=== PATIENT | female | born 1940 | race Caucasian/White ===

== ENCOUNTER 2020-02-01 18:38 | Observation (INO) | payer MEDICARE, SELFPAY ==
[2020-02-01] VITALS (13 sets, daily range): BP systolic 148–175; BP diastolic 80–106; PULSE 70–101; RESP 16–33; TEMP 36.8; O2SAT 87–96
--- NOTE | ~2020-02-01 | XR_ITS ---
XR chest 2V 02/01/2020 19:38 Indication: Midsternal chest pain. Atrial fibrillation. Procedure: AP and lateral views of the chest Comparison: No prior studies for comparison. Findings: Cardiomegaly. There is interstitial edema. Small pleural effusions. No pneumothorax. There is accentuated thoracic kyphosis. No acute osseous abnormality. Impression: 1: Cardiomegaly with interstitial edema. Reviewed, dictated and finalized at location A. OR [employer] DEVEL[employer] Impression: 1: Cardiomegaly with interstitial edema.
--- NOTE | 2020-02-01 19:08 | ECG_ITS ---
Measurements Intervals [place] Rate: 93 P: OR: 0 QRS: -12 QRSD: 85 T: 157 QT: 337 QTc: 420 Interpretive Statements ATRIAL FIBRILLATION DELAYED PRECORDIAL R/S TRANSITION ST-T WAVE ABNORMALITY IN HIGH LATERAL LEADS- CONSIDER ISCHEMIA BASELINE ARTIFACT- I, III, AVR, AVL, AVF, V1-V6 ABNORMAL ECG Electronically Signed On 02-02-2020 7:55:57 LABORATORY ASST by John Saez D.O.
[2020-02-01 19:25] LABS: Basophils Percent Auto 0.4 % (0.2-1.2); Eosinophils Absolute Auto 0.3 K/mm3 (0-0.3); Eosinophils Percent Auto 2.6 % (0-4.4); Hematocrit 40.4 % (37.0-47.0); Hemoglobin 12.4 g/dL (12.0-15.0); Immature Granulocyte Absolute 0.04 K/mm3 (0.00-0.031); Immature Granulocyte Percent A 0.4 % (0-0.5); Lymphocytes Absolute Auto 1.39 K/mm3 (0.9-3.2); Lymphocytes Percent Auto 14.5 % (18.3-44.2); Mean Corpuscular HGB Conc 30.7 g/dl (32-36); Mean Corpuscular Hemoglobin 25.7 pg (26-34); Mean Corpuscular Volume 83.8 fl (80-100); Monocytes Absolute Auto 0.7 K/mm3 (0.1-0.6); Monocytes Percent Auto 7.4 % (2.6-8.5); Neutrophils Absolute Auto 7.2 K/mm3 (1.3-6.7); Neutrophils Percent Auto 74.7 % (45.5-73.1); Platelet Count Result 254 k/mm3 (150-375); Red Blood Count 4.82 M/mm3 (4.2-5.4); Red Cell Distribution Width 17.2 % (11.5-14.5); White Blood Count 9.6 K/mm3 (4.5-10.0)
[2020-02-01 19:38] LABS: Anion Gap 10 mmol/L (8-16); Blood Urea Nitrogen 20 mg/dL (7-17); Carbon Dioxide 26 mmol/L (22-30); Chloride 104 mmol/L (98-107); Estimated CRCL calculation 33 ml/min; Estimated Glomerular Filt Rate 48; Glucose 162 mg/dL (65-105); Sodium 140 mmol/L (137-145)
[2020-02-01 19:42] LABS: Potassium 4.4 mmol/L (3.4-5.0)
[2020-02-01 19:50] LABS: INR 2.1; Partial Thromboplastin Time 33.5 SECONDS (22.3-36.8); Prothrombin Time 23.8 Seconds (11.1-14.7)
--- NOTE | 2020-02-01 19:52 | ED.SOB ---
HPI - SOB/Dyspnea General Chief Complaint: Shortness of Breath/Dyspnea Stated Complaint: shortness of breath Time Seen by Provider: 02/01/20 19:05 History of Present Illness HPI Narrative: Patient is a 79-year-old female who presents to the ER with shortness of breath. Worsening over the last 4 days. Reports she is chronically short of breath but this is markedly worse. She cannot do any activities in her home without becoming short of breath. Does not endorse without angina. She does report she has discomfort in her chest that radiates between her shoulder blades and goes to the mid aspect of her left arm. This is a new sensation for her. She sees a shade maker at [place]. She had an echocardiogram 4 months ago and is worried that she has a bad valve is unsure which one severe it is. She takes Lasix 20 mg as well as Coumadin. Related Data Home Medications Medication Instructions Recorded Confirmed albuterol sulfate INHALATION 02/01/20 atenolol 02/01/20 digoxin 02/01/20 furosemide 02/01/20 umeclidinium-vilanterol [Anoro INHALATION 02/01/20 Ellipta] warfarin 02/01/20 Allergies Allergy/AdvReac Type Severity Reaction Status Date / Time No Known Allergies Allergy Verified 02/01/20 19:07 Review of Systems Review of Systems: All systems reviewed & are unremarkable except as noted in HPI and below Constitutional: Constitutional: Denies chills, Reports fatigue and Denies fever(s) Cardiovascular: Cardiovascular: Reports chest pain, Denies rapid heart rate and Reports radiating jaw, neck or arm pain Respiratory: Respiratory: Denies cough, Reports dyspnea and Denies wheezing Gastrointestinal: Gastrointestinal: Denies abdominal pain, Denies nausea and Denies vomiting [facility] Past Medical History Medical History (Updated 02/01/20 @ 21:06 by Gerard Pierce MD) Atrial fibrillation CHF (congestive heart failure) Colon cancer COPD (chronic obstructive pulmonary disease) Kidney stone Small bowel obstruction Surgical History Surgical History (Updated 02/01/20 @ 20:02 by Gerard Pierce MD) H/O hernia repair History of cholecystectomy History of partial hysterectomy Social History Social History (Updated 02/01/20 @ 20:03 by Gerard Pierce MD) Social History: non-smoker Gender identity (if verbalized by the patient): Female Exam Narrative: Exam Narrative: GENERAL: Well-appearing, well-nourished, and in no acute distress. HEAD: Normocephalic, atraumatic. CHEST: Clear to auscultation with crackles at the bases. No respiratory distress. HEART: Irregular regular rate and rhythm. Systolic murmur heard left upper sternal border. Normal peripheral pulses. ABDOMEN: Soft, nontender, nondistended, normal active bowel sounds. EXTREMITIES: Normal range of motion. 1+ edema. SKIN: Warm, dry, no rash. NEURO: Alert and oriented x3. PSYCH: Normal mood and affect. Course Course Emergency Course: Admit to hospital service for diuresis. Outside records requested. Vital Signs Vital signs: Vital Signs Temperature 98.3 F 02/01/20 18:54 Pulse Rate 88 02/01/20 18:54 Respiratory Rate 16 02/01/20 18:54 Blood Pressure 175/84 H 02/01/20 18:54 Temperature 98.3 F 02/01/20 18:54 Pulse Rate 94 02/01/20 19:05 Respiratory Rate 16 02/01/20 18:54 Blood Pressure 175/84 H 02/01/20 18:54 Pulse Oximetry 93 02/01/20 19:01 MDM - SOB/Dyspnea Lab Data Result diagrams: 02/01/20 19:18 02/01/20 19:18 Labs: Lab Results 02/01/20 02/01/20 02/01/20 Range/Units 19:18 19:18 19:18 WBC 9.6 (4.5-10.0) K/mm3 RBC 4.82 (4.2-5.4) M/mm3 Hgb 12.4 (12.0-15.0) g/dL Hct 40.4 (37.0-47.0) % MCV 83.8 (80-100) fl MCH 25.7 L (26-34) pg MCHC 30.7 L (32-36) g/dl RDW 17.2 H (11.5-14.5) % Plt Count 254 (150-375) k/mm3 MPV 12.0 H (7.4-10.4) fl Immature Gran % (Auto) 0.4 (0-0.5) % Neut % (Auto) 74.7 H (4
[2020-02-01 20:03] LABS: NT Pro B Type Natriuretic Pept 6690 PG/ML (5-100); Troponin I 0.018 ng/mL (0.000-0.034)
--- NOTE | 2020-02-01 20:17 | PC.NURSE ---
Patient ambulated with pulse ox-initially dropped to 89 then came up to 93%. Dr Pierce made aware. Patient reports that it made her chest feel tight like before
[2020-02-01] MEDS: FUROSEMIDE INJ 40 MG/4 ML VIAL IV PUSH (20:19)
--- NOTE | 2020-02-01 21:24 | PM.IMHP ---
H&P: HPI History of Present Illness Date/Time: 02/01/20 21:24 Chief Complaint: shortness of breath for 4 days Narrative: This is a pleasant 79-year-old female with known history of chronic atrial fibrillation on warfarin therapy, congestive heart failure, and COPD who presented to the hospital with worsening shortness of breath over the past 4 days. The patient has had gradual worsening exertional shortness of breath over the past few months but has noticed over the last few days that it has gotten increasingly worse. Associated symptoms include midsternal chest discomfort that seems to radiate towards her back and down her left arm. She denies any fever, chills, cough, wheezing, abdominal pain, nausea, vomiting, dysuria, hematuria, diarrhea, or rectal bleeding. The patient is known to see cardiology at [facility] and her last echocardiogram was about 4 months ago. Tonight the emergency room routine labs were obtained which demonstrate an elevated BNP of 6690. Chest x-ray showed cardiomegaly with interstitial edema. The patient was treated with IV Lasix and we been asked to admit her to the hospital for further care. Review of Systems Review of Systems: All systems reviewed & are unremarkable except as noted in HPI and below PMFSH Past Medical History Medical History Atrial fibrillation CHF (congestive heart failure) Colon cancer COPD (chronic obstructive pulmonary disease) Kidney stone Small bowel obstruction Surgical History Surgical History H/O hernia repair History of cholecystectomy History of partial hysterectomy Family History Family History (Updated 02/01/20 @ 21:39 by Bradford Carlson MD) Mother Cancer of female genital organ Social History Social History Social History: non-smoker Gender identity (if verbalized by the patient): Female Meds Home Medications and Allergies Home Medications Medication Instructions Recorded Confirmed Type albuterol sulfate INHALATION 02/01/20 History atenolol 02/01/20 History digoxin 02/01/20 History furosemide 02/01/20 History umeclidinium-vilanterol [Anoro INHALATION 02/01/20 History Ellipta] warfarin 02/01/20 History Allergies Allergy/AdvReac Type Severity Reaction Status Date / Time No Known Allergies Allergy Verified 02/01/20 19:07 Vital Signs Vital Signs - 24 hr 02/01/20 18:54 02/01/20 19:01 02/01/20 19:05 Temperature 36.8 C Pulse Rate 88 94 Respiratory Rate 16 Blood Pressure 175/84 H Pulse Oximetry 93 Exam Const: General: cooperative, alert, awake, acute distress respiratory, tired appearing, uncomfortable and other (anxious) Nutritional Appearance: overweight Orientation/consciousness: patient oriented x3 HENMT: Head: normal to inspection General nose exam: Normal external nose present Face and sinus: normal facial exam Mouth: Yes Normal oral and palatal mucosa present and Yes oropharynx normal Eyes: Pupils: Equal, round and reactive pupils present EOM: EOMs intact bilaterally Neck: Neck: supple and no JVD Thyroid: thyroid normal Lymphatic: lymphadenopathy not noted Resp: Effort & Inspection: tachypneic Auscultation: crackles (bibasilar++ ) bilateral and diminished lung sounds Cardio: Rate: tachycardic Rhythm: abnormal rhythm irregularly irregular Heart sounds: Murmur heart sound present (harsh holosystolic murmur >>aortic focus radiating to carotids++ ) systolic GI: Inspection: normal to inspection Auscultation: normal bowel sounds Skin: General skin exam: normal color and no rashes or lesions noted Neuro: General: patient oriented x3 Cranial nerves: Yes CN's II-XII intact bilaterally and Yes Equal, round and reactive pupils present Speech: normal speech Motor exam (neuro): 5/5 motor strength present throughout Sensory Exa
[2020-02-01] MEDS: PROMETHAZINE HCL 25 MG/ML AMPUL 12.5 MG IV PUSH (22:49)
[2020-02-01] MEDS: MORPHINE SULFATE (*CRX) 4 MG/ML INJ IV PUSH (22:49)
[2020-02-01 23:08] LABS: Troponin I 0.018 ng/mL (0.000-0.034)
[2020-02-02] VITALS (22 sets, daily range): BP systolic 104–174; BP diastolic 60–93; PULSE 60–104; RESP 16–25; TEMP 35.7–36.6; O2SAT 97–100; BMI 28.3
--- NOTE | 2020-02-02 00:58 | PC.NURSE ---
This patient, Maddison Brown, was admitted to IMU Room 232-01. Patient/family oriented to hospital policies and general routines including ID bracelet, bed and alarms, visiting hours, pain management, procedures, bathroom and other care routines, personal items, smoking policy, room service/diet, and visiting hours. Information on how to activate the Rapid Response Team has been discussed. Patient/Family are encouraged to report perceived risks to care and to ask questions if they do not understand what they are told or what they should do.
[2020-02-02 05:34] LABS: Basophils Percent Auto 0.4 % (0.2-1.2); Eosinophils Absolute Auto 0.3 K/mm3 (0-0.3); Eosinophils Percent Auto 4.3 % (0-4.4); Hematocrit 36.4 % (37.0-47.0); Hemoglobin 11.1 g/dL (12.0-15.0); Immature Granulocyte Absolute 0.03 K/mm3 (0.00-0.031); Immature Granulocyte Percent A 0.4 % (0-0.5); Lymphocytes Percent Auto 17.6 % (18.3-44.2); Mean Corpuscular HGB Conc 30.5 g/dl (32-36); Mean Corpuscular Hemoglobin 24.9 pg (26-34); Mean Corpuscular Volume 81.6 fl (80-100); Mean Platelet Volume 12.1 fl (7.4-10.4); Monocytes Absolute Auto 0.6 K/mm3 (0.1-0.6); Monocytes Percent Auto 7.2 % (2.6-8.5); Neutrophils Absolute Auto 5.6 K/mm3 (1.3-6.7); Neutrophils Percent Auto 70.1 % (45.5-73.1); Platelet Count Result 231 k/mm3 (150-375); Red Blood Count 4.46 M/mm3 (4.2-5.4); Red Cell Distribution Width 16.7 % (11.5-14.5)
[2020-02-02 06:01] LABS: Anion Gap 6 mmol/L (8-16); Blood Urea Nitrogen 23 mg/dL (7-17); Calcium 8.4 mg/dL (8.4-10.2); Carbon Dioxide 30 mmol/L (22-30); Chloride 104 mmol/L (98-107); Estimated CRCL calculation 36 ml/min; Estimated Glomerular Filt Rate 54; Glucose 98 mg/dL (65-105); Sodium 140 mmol/L (137-145)
[2020-02-02] MEDS: FUROSEMIDE INJ 40 MG/4 ML VIAL IV PUSH ×2 (08:31→20:07)
[2020-02-02 08:43] LABS: Hemoglobin A1C 5.8 % (<5.7)
--- NOTE | 2020-02-02 11:38 | PM.IMPN ---
Progress Note: A&P Assessment and Plan (1) Congestive heart failure: Qualifiers: Heart failure chronicity: acute on chronic Heart failure type: unspecified Qualified Code(s): I50.9 - Heart failure, unspecified Code(s): I50.9 - Heart failure, unspecified Status: Acute Assessment and Plan: The patient has been placed in observation status. Continue IV lasix. telemetry. Is and Os, daily weights, sodium prudent, fluid restricted diet. TSH w/reflex T4, Echocardiogram. (2) Chest pain: Qualifiers: Chest pain type: unspecified Qualified Code(s): R07.9 - Chest pain, unspecified Code(s): R07.9 - Chest pain, unspecified Status: Acute Assessment and Plan: r/o ACS. Trend troponin, telemetry. Nitroglycerin SL prn for chest pain. Cardiology consultation in am. (3) Heart murmur, systolic: Code(s): R01.1 - Cardiac murmur, unspecified Status: Acute Assessment and Plan: Likely aortic stenosis. Check echocardiogram in am. (4) Abnormal glucose: Code(s): R73.09 - Other abnormal glucose Status: Acute Assessment and Plan: r/o diabetes mellitus. Check HgbA1c in am. (5) Atrial fibrillation: Qualifiers: Atrial fibrillation type: unspecified Qualified Code(s): I48.91 - Unspecified atrial fibrillation Code(s): I48.91 - Unspecified atrial fibrillation Status: Chronic Assessment and Plan: Currently rate controlled. Continue atenolol, digoxin, and warfarin. Monitor PT/INR. (6) COPD (chronic obstructive pulmonary disease): Qualifiers: COPD type: unspecified COPD Qualified Code(s): J44.9 - Chronic obstructive pulmonary disease, unspecified Code(s): J44.9 - Chronic obstructive pulmonary disease, unspecified Status: Chronic Assessment and Plan: Xopenex prn. Additional Plan Will diurese patient with IV Lasix. If condition improve with treatment, possible discharge tomorrow month Subjective Date/time seen: 02/02/20 11:38 Interval history: Patient was seen during the morning rounds today. Patient has mild shortness of breath. No chest pain. No nausea vomiting or abdominal pain. No fever. Mood stable. Review of Systems Review of Systems: All systems reviewed & are unremarkable except as noted in HPI and below Exam Const: General: cooperative, alert, awake, acute distress respiratory, tired appearing, uncomfortable and other (anxious) Nutritional Appearance: overweight Orientation/consciousness: patient oriented x3 HENMT: Head: normal to inspection General nose exam: Normal external nose present Face and sinus: normal facial exam Mouth: Yes Normal oral and palatal mucosa present and Yes oropharynx normal Eyes: Pupils: Equal, round and reactive pupils present EOM: EOMs intact bilaterally Neck: Neck: supple and no JVD Thyroid: thyroid normal Lymphatic: lymphadenopathy not noted Resp: Effort & Inspection: tachypneic Auscultation: crackles (bibasilar++ ) bilateral and diminished lung sounds Cardio: Rate: tachycardic Rhythm: abnormal rhythm irregularly irregular Heart sounds: Murmur heart sound present (harsh holosystolic murmur >>aortic focus radiating to carotids++ ) systolic GI: Inspection: normal to inspection Auscultation: normal bowel sounds Skin: General skin exam: normal color and no rashes or lesions noted Neuro: General: patient oriented x3 Cranial nerves: Yes CN's II-XII intact bilaterally and Yes Equal, round and reactive pupils present Speech: normal speech Motor exam (neuro): 5/5 motor strength present throughout Sensory Exam: normal sensation Extrem: General: normal to inspection and edema Psych: Mental Status: mental status grossly normal Affect: normal affect Objective Data Vital Signs Vital Signs: Vital Signs - 24 hr 02/01/20 18:54 02/01/20 19:01 02/01/20 19:05 Temperature 36.8 C Pulse Rate 88 94 Respiratory Rate 16 Blood Press
[2020-02-02 12:16] LABS: INR 1.9; Prothrombin Time 22.2 Seconds (11.1-14.7)
[2020-02-02 12:29] LABS: Troponin I 0.018 ng/mL (0.000-0.034)
[2020-02-02] MEDS: atenoloL 50 MG TABLET PO (12:52)
[2020-02-02] MEDS: MAGNESIUM OXIDE 400 MG TABLET PO (12:52)
[2020-02-02] MEDS: DIGOXIN TAB 125 MCG TABLET PO (12:52)
--- NOTE | 2020-02-02 14:58 | PM.CNCAR ---
Assessment and Plan Assessment and plan (1) Pericardial effusion: Code(s): I31.3 - Pericardial effusion (noninflammatory) Status: Acute Assessment and Plan: Chronic. Not contributing to patient's symptom complex. She is not in tamponade physiology by echocardiogram. (2) Mitral regurgitation: Code(s): I34.0 - Nonrheumatic mitral (valve) insufficiency Status: Acute Assessment and Plan: By exam and echo at least moderate more likely severe regurgitation identified. Possible posterior mitral valve prolapse but difficult to assess given degree of calcification and reverberation artifact. Nonetheless, given her persistence of atrial fibrillation, pulmonary hypertension as well as moderate to severe tricuspid regurgitation valvular heart disease may certainly contributing to her decompensated heart failure, however, I suspect her respiratory issues also complicated by underlying COPD (although the etiology of her lung disease remains less clear). Her valvular heart disease appears chronic yet I am unable to comment on interval progression. Patient has an established software validation engineer with whom she follows on a regular basis. Unfortunately, there is nothing that can be done regarding her valvular heart disease at this institution as we lack cardiothoracic surgical services. As such, follow-up with her software validation engineer as an outpatient will be required for further guidance in this regard. In the interval continue diuresis, heart rate control with atrial fibrillation. Will review records when available as requested from her outside software validation engineer. She is well where she has valvular heart disease and a chronic pericardial effusion and, as such, these issues are not new. Nonetheless, heart rate control be important given severity of her mitral regurgitation. Given limitations as I do not have her prior records for comparison, I suspect she will require surgical intervention for her valvular heart disease in the near future. ANA M can further clarify severity of MR and may add to AV pathology assessment this will not change her management at this time at this institution unless additional concerns arise. Further recommendations dependent upon patient's response to therapy. (3) Aortic stenosis: Code(s): I35.0 - Nonrheumatic aortic (valve) stenosis Status: Acute Assessment and Plan: By Echo this admission, aortic valve area of 0.9 centimeter squared is out of proportion to peak velocity of 2.9 m/sec and mean gradient of 10 mm Hg. I doubt aortic stenosis is her primary issue. (4) Congestive heart failure: Qualifiers: Heart failure chronicity: acute on chronic Heart failure type: unspecified Qualified Code(s): I50.9 - Heart failure, unspecified Code(s): I50.9 - Heart failure, unspecified Status: Acute Assessment and Plan: Acute on chronic decompensated heart failure with preserved ejection fraction most likely related to valvular heart disease in conjunction with atrial fibrillation. I also suspect further decompensation secondary to acute respiratory failure and probable underlying COPD. -Continue less than 2 g sodium daily intake, IV Lasix, accurate input and output, daily weight. Monitor renal function and electrolytes closely. Caution to avoid over-diuresis. Check TSH. Troponins negative serially, no evidence for acute myocardial infarction. No documented history of CAD reported by pt or per available records so this cannot be excluded. (5) Atrial fibrillation: Qualifiers: Atrial fibrillation type: unspecified Qualified Code(s): I48.91 - Unspecified atrial fibrillation Code(s): I48.91 - Unspecified atrial fibrillation Status: Chronic Assessment and Plan: Well controlled at this time. Continue home medical management with atenolol and digoxin, warfarin. Goal INR of 2-3. She reports a history of failed cardioversions and, per her description, appe
[2020-02-02] MEDS: ALBUTEROL SULFATE NEB 2.5 MG/0.5 ML INH INHALATION ×2 (16:59→21:46)
[2020-02-02] MEDS: IPRATROPIUM BR 0.02% INH SOLN 0.5 MG/2.5 ML VIAL INHALATION (16:59)
[2020-02-02] MEDS: WARFARIN (*PBKC) 2.5 MG TABLET PO (17:14)
--- NOTE | 2020-02-02 21:46 | ECHO_ITS ---
Patient Info Name: Maddison Brown Age: 79 years : 1940 Gender: Female Ht: 61 in Wt: 149 lbs BSA: 1.73 m2 HR: 78 bpm BP: 143 / 77 mmHg Heart Rhythm: Atrial Fibrillation Technical Quality: Good Exam Date: 02/02/2020 9:00 AM Exam Location: [facility] Patient Status: Inpatient Admit Date: 02/01/2020 Staff Ordering Physician: Bradford Carlson MD [employer] Business Development Officer: Zeus Wells RDCS, RT Attending Provider: Bradford Carlson MD Referring Physician: Aldo BARILLAS; Exam Type: CA echo doppler color flow Study Info Indications I50.9 - Heart failure, unspecified Complete two-dimensional, color flow and Doppler transthoracic echocardiogram is performed. Strain analysis performed. Summary 1. Left ventricular systolic function is normal, estimated at 65-70%. 2. There is moderately increased left ventricular wall thickness. 3. E/e' 50.5 is severely elevated. 4. Left atrial chamber dimension is severely enlarged. 5. The mitral valve annulus is severely calcified. 6. Probable posterior leaflet prolapse with highly eccentric anteriorly directed [id number] regurgitation which may be underestimated due to eccentricity. 7. Mobile echodensity which may in fact be secondary to calcified posterior leaflet prolapse although difficult to characterize further due to reverberation artifact only appreciated in 4 chamber view. Clinical correlation advised. 8. There is moderate to severe tricuspid valve regurgitation. 9. Moderate pulmonary hypertension, estimated pulmonary arterial systolic pressure is 50 mmHg. 10. There is a moderate to large circumferential pericardial effusion largest posteriorly up to 2.3 cm, otherwise generally 1.1-1.6cm. No echocardiographic evidence of tamponade physiology nor with mitral and tricuspid inflow velocities. Left Ventricle Left ventricular chamber dimension is normal. Left ventricular systolic function is normal, estimated at 65-70%. There is moderately increased left ventricular wall thickness. The left ventricular diastolic function is indeterminate. E/e' 50.5 is severely elevated. Global longitudinal strain is moderately elevated at -12 %. Right Ventricle Right ventricular chamber dimension is normal. Right ventricular systolic function is normal. Left Atria Left atrial chamber dimension is severely enlarged. Right Atria Right atrial chamber dimension is normal. Aortic Valve The aortic valve is trileaflet. There is moderate to severe aortic valve stenosis with a peak velocity of 286 cm/s, mean gradient of 10 mmHg, and aortic valve area of 0.9 cm2. There is mild aortic valve regurgitation. There is moderate aortic valve calcification. Pulmonic Valve The pulmonic valve is normal. There is mild pulmonic regurgitation. Mitral Valve The mitral valve has calcified leaflets. There is no mitral valve stenosis. The mitral valve annulus is severely calcified. Probable posterior leaflet prolapse with highly eccentric anteriorly directed [id number] regurgitation which may be underestimated due to eccentricity. Mobile echodensity which may in fact be secondary to calcified posterior leaflet prolapse although difficult to characterize further due to reverberation artifact only appreciated in 4 chamber view. Clinical correlation advised. Tricuspid Valve The tricuspid valve leaflets are normal. There is moderate to severe tricuspid valve regurgitation. Moderate pulmonary hypertension, estimated pulmonary arterial systolic pressure is 50 mm
[2020-02-02] MEDS: HYDROcodone/acetaminophen (*CRX) 5-325 MG TABLET 1 TAB PO (22:03)
[2020-02-03] VITALS (8 sets, daily range): BP systolic 131–150; BP diastolic 78–84; PULSE 59–89; RESP 16–20; TEMP 35.9–36.5; O2SAT 97–100
[2020-02-03 05:26] LABS: INR 1.9; Prothrombin Time 22.6 Seconds (11.1-14.7)
[2020-02-03 05:32] LABS: Anion Gap 4 mmol/L (8-16); Blood Urea Nitrogen 27 mg/dL (7-17); Calcium 8.8 mg/dL (8.4-10.2); Carbon Dioxide 38 mmol/L (22-30); Chloride 98 mmol/L (98-107); Estimated CRCL calculation 33 ml/min; Estimated Glomerular Filt Rate 48; Glucose 111 mg/dL (65-105); Potassium 3.8 mmol/L (3.4-5.0); Sodium 140 mmol/L (137-145)
[2020-02-03] MEDS: DIGOXIN TAB 125 MCG TABLET PO (08:59)
[2020-02-03] MEDS: MAGNESIUM OXIDE 400 MG TABLET PO (08:59)
[2020-02-03] MEDS: atenoloL 50 MG TABLET PO (08:59)
[2020-02-03] MEDS: FUROSEMIDE INJ 40 MG/4 ML VIAL IV PUSH (08:59)
--- NOTE | 2020-02-03 10:14 | PM.DS ---
DS: Admitting Diagnosis Admitting Diagnosis Admitting Diagnosis: 1. Acute systolic congestive heart 2. History of COPD 3. History of paroxysmal atrial fibrillation DS: Discharge Diagnosis Discharge Diagnosis (1) Congestive heart failure: Qualifiers: Heart failure chronicity: acute on chronic Heart failure type: unspecified Qualified Code(s): I50.9 - Heart failure, unspecified Code(s): I50.9 - Heart failure, unspecified Status: Acute Assessment and Plan: The patient has been placed in observation status. Continue IV lasix. telemetry. Is and Os, daily weights, sodium prudent, fluid restricted diet. TSH w/reflex T4, Echocardiogram. (2) Chest pain: Qualifiers: Chest pain type: unspecified Qualified Code(s): R07.9 - Chest pain, unspecified Code(s): R07.9 - Chest pain, unspecified Status: Acute Assessment and Plan: r/o ACS. Trend troponin, telemetry. Nitroglycerin SL prn for chest pain. Cardiology consultation in am. (3) Heart murmur, systolic: Code(s): R01.1 - Cardiac murmur, unspecified Status: Acute Assessment and Plan: Likely aortic stenosis. Check echocardiogram in am. (4) Abnormal glucose: Code(s): R73.09 - Other abnormal glucose Status: Acute Assessment and Plan: r/o diabetes mellitus. Check HgbA1c in am. (5) Atrial fibrillation: Qualifiers: Atrial fibrillation type: unspecified Qualified Code(s): I48.91 - Unspecified atrial fibrillation Code(s): I48.91 - Unspecified atrial fibrillation Status: Chronic Assessment and Plan: Currently rate controlled. Continue atenolol, digoxin, and warfarin. Monitor PT/INR. (6) COPD (chronic obstructive pulmonary disease): Qualifiers: COPD type: unspecified COPD Qualified Code(s): J44.9 - Chronic obstructive pulmonary disease, unspecified Code(s): J44.9 - Chronic obstructive pulmonary disease, unspecified Status: Chronic Assessment and Plan: Xopenex prn. DS: Summary Hospital Course Hospital Course: 79 years old female admitted with shortness of breath patient chest x-ray shows mild congestive heart. CBC electrolytes were normal. Patient was given diuresis and electrolytes were monitored. Echo echo was done and report is test for review. Today patient is feeling better so patient is discharged back home in stable condition. Heart healthy diet. Activity as tolerated. Follow-up with Cardiology outpatient next week. Time spent discussing smoking cessation with patient: 3 to 10 minutes Status at Discharge Cognitive/behavioral status at discharge: Stable. Functional status at discharge: independent ambulation Overall status at discharge: patient is back to baseline Time Spent with Patient Time attestation: Total time spent providing and/or coordinating discharge services: Time spent: Less than 30 minutes Specific discharge activities: As tolerated Exam Const: General: cooperative, alert, awake, acute distress respiratory, tired appearing, uncomfortable and other (anxious) Nutritional Appearance: overweight Orientation/consciousness: patient oriented x3 HENMT: Head: normal to inspection General nose exam: Normal external nose present Face and sinus: normal facial exam Mouth: Yes Normal oral and palatal mucosa present and Yes oropharynx normal Eyes: Pupils: Equal, round and reactive pupils present EOM: EOMs intact bilaterally Neck: Neck: supple and no JVD Thyroid: thyroid normal Lymphatic: lymphadenopathy not noted Resp: Effort & Inspection: tachypneic Auscultation: crackles (bibasilar++ ) bilateral and diminished lung sounds Cardio: Rate: tachycardic Rhythm: abnormal rhythm irregularly irregular Heart sounds: Murmur heart sound present (harsh holosystolic murmur >>aortic focus radiating to carotids++ ) systolic GI: Inspection: normal to inspection Auscultation: normal bowel sounds Skin: General skin e
--- NOTE | 2020-02-03 11:09 | PM.PNCARD ---
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 This appears to be her 1st episode of CHF. We do not have any records to compare the degree of valve disease to her current echo. By exam and echo at least moderate more likely severe regurgitation identified. Possible posterior mitral valve prolapse but difficult to assess given degree of calcification and reverberation artifact. She also has significant tricuspid regurgitation and pulmonary hypertension. She probably does not have severe aortic stenosis. Patient has an established string cutter with whom she follows on a regular basis, Dr. Pantoja. Unfortunately, there is nothing that can be done regarding her valvular heart disease at this institution as we lack cardiothoracic surgical services. As such, follow-up with her string cutter as an outpatient will be required for further guidance in this regard. In the interval continue diuresis, heart rate control with atrial fibrillation. She likely will need further evaluation and probably require surgical intervention for her valvular heart disease in the near future. ANA M can further clarify severity of MR and may add to AV pathology assessment this will not change her management at this time at this institution unless additional concerns arise. Further recommendations dependent upon patient's response to therapy. She has diuresed well and feels better, although not great. She seems to have some residual CHF and I recommend we increase her furosemide from 20 mg daily to: 40 a.m. mg b.i.d. for 2 days then 40 mg daily. Follow-up with Dr. Pantoja in the near future. Return to [facility] if further problems. (2) Congestive heart failure: Qualifiers: Heart failure chronicity: acute on chronic Heart failure type: unspecified Qualified Code(s): I50.9 - Heart failure, unspecified Code(s): I50.9 - Heart failure, unspecified Status: Acute Assessment and Plan: As above. (3) Aortic stenosis: Code(s): I35.0 - Nonrheumatic aortic (valve) stenosis Status: Acute Assessment and Plan: By Echo this admission, aortic valve area of 0.9 centimeter squared is out of proportion to peak velocity of 2.9 m/sec and mean gradient of 10 mm Hg. I doubt aortic stenosis is her primary issue. (4) Atrial fibrillation: Qualifiers: Atrial fibrillation type: unspecified Qualified Code(s): I48.91 - Unspecified atrial fibrillation Code(s): I48.91 - Unspecified atrial fibrillation Status: Chronic Assessment and Plan: Well controlled at this time. Continue home medical management with atenolol and digoxin, warfarin. Goal INR of 2-3. She reports a history of failed cardioversions and, per her description, appears have permanent atrial fibrillation. (5) Pericardial effusion: Code(s): I31.3 - Pericardial effusion (noninflammatory) Status: Acute Assessment and Plan: Chronic. Not contributing to patient's symptom complex. She is not in tamponade physiology by echocardiogram. (6) COPD (chronic obstructive pulmonary disease): Qualifiers: COPD type: unspecified COPD Qualified Code(s): J44.9 - Chronic obstructive pulmonary disease, unspecified Code(s): J44.9 - Chronic obstructive pulmonary disease, unspecified Status: Chronic Assessment and Plan: Per primary service. Minimize O2 as appropriate. Bronchodilator therapy. (7) Pulmonary hypertension: Code(s): I27.20 - Pulmonary hypertension, unspecified Status: Acute Assessment and Plan: Moderate in severity. Likely multifacto
== END 2020-02-03 12:59 | disposition home or self-care (01) ==
LOC: ANHED 21:06 → ANHIMU 02-02 00:59
PROVIDERS: Admitting Provider Family Medicine; Emergency Provider Emergency Medicine; PCP Internal Medicine; Visit Provider Internal Medicine
DX: I50.9 Heart failure, unspecified (principal); I31.3 Pericardial effusion (noninflammatory); I34.0 Nonrheumatic mitral (valve) insufficiency; I35.0 Nonrheumatic aortic (valve) stenosis; I27.20 Pulmonary hypertension, unspecified; R06.02 Shortness of breath; R07.9 Chest pain, unspecified; R01.1 Cardiac murmur, unspecified; R73.09 Other abnormal glucose; I48.91 Unspecified atrial fibrillation; J44.9 Chronic obstructive pulmonary disease, unspecified; Z85.038 Personal history of other malignant neoplasm of large intestine; Z79.01 Long term (current) use of anticoagulants
CPT/HCPCS: 36415; 51702; 71046; 80048; 83036; 83880; 84443; 84484; 85025; 85610; 85730; 93005; 93306; 94640; 96374; 96375; 96376; 99285; A9270; G0378; J1940; J2270; J2550